=== PATIENT | female | born 1975 | race Caucasian/White ===

== ENCOUNTER 2017-01-18 16:17 | Emergency (ER) | payer SELFPAY ==
[~2017-01-18] VITALS: Ht 167.6 cm; Wt 122.5 kg
[~2017-01-18 16:17] MED LIST: AMLODIPINE BES1 CAP PO; AMLODIPINE BESY1 CA3 PO; ATENOLOL25 MG PO; CIPRO500 MG PO; CLARITIN10 MG PO; DOXYCYCLINE100 M3 PO; ESTRADIOL1 MG PO; FLONASE ALLERG9.9 ML NAS; FUROSEMIDE40 MG PO; HYDROCODONE BIT1 T11 PO; LANSOPRAZOLE30 MG PO; LOMOTIL 0.025 M1 TA1 PO; MOTRIN800 MG PO; NAPROSYN500 MG PO; NORCO 325 MG-51 TAB PO; PARAFON FORTE500 MG PO; PAROXETINE HCL20 MG PO; PROCTOFOAM 1%10 GM PO; SYNTHROID25 MCG PO; Synthroid,Levo25 MCG PO; VIBRAMYCIN100 MG PO; VITAMIN D32000 IU PO; ZOFRAN ODT4 MG SL; ZOVIRAX400 MG PO
[2017-01-18 16:29] VITALS: BP 129/76
[2017-01-18] MEDS ORDERED: MEDROL DOSEPAK4 MG PO (19:42)
[2017-01-18] MEDS ORDERED: BENADRYL ALLERG25 M5 PO (19:42)
[2017-01-18] MEDS ORDERED: CYCLOBENZAPRINE5 M3 PO (19:42)
== END 2017-01-18 19:49 | disposition home or self-care (01) ==
LOC: ED 16:17
DX: K13.0 Diseases of lips (principal); T78.40XA Allergy, unspecified, initial encounter; M62.838 Other muscle spasm; Z98.890 Other specified postprocedural states; Z90.710 Acquired absence of both cervix and uterus; Z79.899 Other long term (current) drug therapy; Z88.2 Allergy status to sulfonamides; Z88.1 Allergy status to other antibiotic agents; Y92.9 Unspecified place or not applicable

== ENCOUNTER 2017-07-01 20:24 | Emergency (ER) | payer BC ==
[~2017-07-01] VITALS: Ht 167.6 cm; Wt 119.3 kg
[~2017-07-01 20:24] MED LIST changes: +BENADRYL ALLERG25 M5 PO; +CYCLOBENZAPRINE5 M3 PO; +MEDROL DOSEPAK4 MG PO
[2017-07-01 20:42] VITALS: BP 137/67
[2017-07-01 21:05] LABS: BILIRUBIN NEGATIVE (NEGATIVE); BLOOD 1+ (NEGATIVE); CLARITY SL CLOUDY (CLEAR); COLOR YELLOW (YELLOW); GLUCOSE NEGATIVE (NEGATIVE); KETONE NEGATIVE (NEGATIVE); LEUKO ESTERASE NEGATIVE (NEGATIVE); NITRITE NEGATIVE (NEGATIVE); PH 5.5 (5.0-9.0); SPECIFIC GRAVITY 1.025 (1.005-1.030); UROBILINOGEN 0.2 E.U./dl (0.2-1.0)
[2017-07-01 21:22] LABS: BACTERIA 4+; YEAST TRACE
[2017-07-01 21:23] LABS: BASO % 0.2 % (0.0-1.0); EOS # 0.1 10*3/uL (0.0-0.4); EOS % 2.9 % (1.0-4.0); HEMOGLOBIN 12.7 g/dl (12.0-16.0); LYMPH # 1.6 10*3/uL (1.3-4.4); LYMPH % 33.3 % (27.0-41.0); MEAN CELL VOLUME 81.9 fl (81.0-99.0); MEAN CORPUSCULAR HGB 26.7 pg (27.0-31.0); MEAN CORPUSCULAR HGB CONC 32.6 g/dl (33.0-37.0); MEAN PLATELET VOLUME 9.2 fl (9.6-12.3); MONO # 0.4 10*3/uL (0.1-1.0); MONO % 8.9 % (3.0-9.0); NEUT # 2.6 10*3/uL (2.3-7.9); NEUT % 54.5 % (47.0-73.0); PLATELET COUNT AUTOMATED 198 10*3/uL (130-400); RED BLOOD COUNT 4.76 10*6/uL (4.10-5.10); RED CELL DISTRI WIDTH 13.9 % (0-14.5); WHITE BLOOD COUNT 4.8 10*3/uL (4.8-10.8)
[2017-07-01 21:38] LABS: ALBUMIN 3.4 gm/dl (3.1-4.5); ALKALINE PHOSPHATASE 94 U/L (45-117); BUN 17 mg/dl (7-24); CHLORIDE 108 mmol/L (98-107); CREATININE 0.91 mg/dL (0.55-1.02); LIPASE 218 U/L (73-393); POTASSIUM 3.9 mmol/L (3.5-5.1); SGOT/AST 23 IU/L (3-35); SGPT/ALT 42 U/L (12-78); SODIUM 141 mmol/L (136-145); TOTAL PROTEIN 6.8 gm/dL (6.4-8.2)
[2017-07-01] MEDS ORDERED: Zofran4 MG PO (23:42)
[2017-07-01] MEDS ORDERED: Motrin,Rufen800 MG PO (23:42)
== END 2017-07-02 00:06 | disposition home or self-care (01) ==
LOC: ED 20:24
PROVIDERS: Physician Assistant
DX: R10.31 Right lower quadrant pain (principal); Z98.890 Other specified postprocedural states; Z90.710 Acquired absence of both cervix and uterus; Z79.899 Other long term (current) drug therapy; Z88.1 Allergy status to other antibiotic agents; Z88.2 Allergy status to sulfonamides

== ENCOUNTER 2017-10-13 14:40 | Emergency (ER) | payer BC ==
[~2017-10-13] VITALS: Ht 167.6 cm; Wt 119.3 kg
[~2017-10-13 14:40] MED LIST changes: +Motrin,Rufen800 MG PO; +Zofran4 MG PO
[2017-10-13 14:55] VITALS: BP 123/85
[2017-10-13] MEDS ORDERED: CITALOPRAM10 MG PO (14:56)
[2017-10-13] MEDS ORDERED: ATORVASTATIN CA10 M1 PO (14:57)
[2017-10-13] MEDS ORDERED: FLONASE ALLERG9.9 ML NAS (15:09)
[2017-10-13] MEDS ORDERED: VIBRAMYCIN100 MG PO (15:09)
== END 2017-10-13 15:15 | disposition home or self-care (01) ==
LOC: ED 14:40
DX: J01.90 Acute sinusitis, unspecified (principal); Z98.890 Other specified postprocedural states; Z90.710 Acquired absence of both cervix and uterus; Z79.899 Other long term (current) drug therapy; Z88.2 Allergy status to sulfonamides; Z88.1 Allergy status to other antibiotic agents

== ENCOUNTER 2017-12-20 17:48 | Emergency (ER) | payer BC ==
[~2017-12-20] VITALS: Ht 167.6 cm; Wt 122.5 kg
[~2017-12-20 17:48] MED LIST changes: +ATORVASTATIN CA10 M1 PO; +CITALOPRAM10 MG PO
[2017-12-20 17:57] VITALS: BP 115/72
[2017-12-20] MEDS ORDERED: DOXYCYCLINE100 M3 PO (18:42)
[2017-12-20] MEDS ORDERED: IBUPROFEN600 MG PO ×2 (18:42→18:43)
== END 2017-12-20 19:07 | disposition home or self-care (01) ==
LOC: ED 17:48
DX: K13.0 Diseases of lips (principal); Z88.1 Allergy status to other antibiotic agents; Z88.2 Allergy status to sulfonamides

== ENCOUNTER 2018-12-05 16:01 | Emergency (ER) | payer BC ==
[~2018-12-05] VITALS: Ht 167.6 cm; Wt 127.0 kg
[~2018-12-05 16:01] MED LIST changes: +IBUPROFEN600 MG PO; +ZITHROMAX250 MG PO
[2018-12-05 16:04] VITALS: BP 131/79
[2018-12-05] MEDS ORDERED: AMINOPHYLLIN200 MG PO (17:01)
== END 2018-12-05 17:05 | disposition home or self-care (01) ==
LOC: ED 16:01
DX: H66.91 Otitis media, unspecified, right ear (principal); Z88.2 Allergy status to sulfonamides; Z88.1 Allergy status to other antibiotic agents; Z79.2 Long term (current) use of antibiotics; Z79.899 Other long term (current) drug therapy; Z90.710 Acquired absence of both cervix and uterus

== ENCOUNTER 2018-12-23 13:18 | Emergency (ER) | payer BC ==
[~2018-12-23] VITALS: Ht 167.6 cm; Wt 127.0 kg
[~2018-12-23 13:18] MED LIST changes: +AMINOPHYLLIN200 MG PO
[2018-12-23 13:19] VITALS: BP 143/95
[2018-12-23] MEDS ORDERED: ZITHROMAX250 MG PO (14:23)
== END 2018-12-23 14:33 | disposition home or self-care (01) ==
LOC: ED 13:18
DX: H66.91 Otitis media, unspecified, right ear (principal); J32.9 Chronic sinusitis, unspecified; Z88.2 Allergy status to sulfonamides; Z88.1 Allergy status to other antibiotic agents; Z79.899 Other long term (current) drug therapy

== ENCOUNTER 2019-03-01 15:08 | Emergency (ER) | payer BC ==
[~2019-03-01] VITALS: Ht 167.6 cm; Wt 127.0 kg
[2019-03-01 15:13] VITALS: BP 122/72
[2019-03-01] MEDS ORDERED: CYCLOBENZAPRINE10 MG PO ×2 (18:16→18:17)
== END 2019-03-01 18:26 | disposition home or self-care (01) ==
LOC: ED 15:08
DX: S46.912A Strain of unspecified muscle, fascia and tendon at shoulder and upper arm level, left arm, initial encounter (principal); R07.81 Pleurodynia; M79.602 Pain in left arm; Z88.2 Allergy status to sulfonamides; Z88.1 Allergy status to other antibiotic agents; Z79.899 Other long term (current) drug therapy; W18.39XA Other fall on same level, initial encounter; Y93.02 Activity, running; Y92.89 Other specified places as the place of occurrence of the external cause; Y99.8 Other external cause status

== ENCOUNTER 2019-06-27 10:49 | Emergency (ER) | payer BC ==
[~2019-06-27] VITALS: Ht 167.6 cm; Wt 128.4 kg
--- NOTE | ~2019-06-27 | EKG ---
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
[~2019-06-27 10:49] MED LIST changes: +CYCLOBENZAPRINE10 MG PO
[2019-06-27 10:50] VITALS: BP 144/91
[2019-06-27 11:59] LABS: BASO % 0.5 % (0.0-1.0); EOS # 0.1 10*3/uL (0.0-0.4); EOS % 1.8 % (1.0-4.0); HEMATOCRIT 42.7 % (37.0-47.0); HEMOGLOBIN 13.5 g/dl (12.0-16.0); LYMPH # 1.1 10*3/uL (1.3-4.4); LYMPH % 25.9 % (27.0-41.0); MEAN CELL VOLUME 82.6 fl (81.0-99.0); MEAN CORPUSCULAR HGB 26.1 pg (27.0-31.0); MEAN CORPUSCULAR HGB CONC 31.6 g/dl (33.0-37.0); MEAN PLATELET VOLUME 9.1 fl (9.6-12.3); MONO # 0.3 10*3/uL (0.1-1.0); MONO % 7.6 % (3.0-9.0); NEUT # 2.8 10*3/uL (2.3-7.9); NEUT % 63.7 % (47.0-73.0); PLATELET COUNT AUTOMATED 217 10*3/uL (130-400); RED BLOOD COUNT 5.17 10*6/uL (4.10-5.10); RED CELL DISTRI WIDTH 14.5 % (0-14.5); WHITE BLOOD COUNT 4.4 10*3/uL (4.8-10.8)
[2019-06-27 12:12] LABS: ACT PARTIAL THROMBO TIME 26.5 SECONDS (20.0-32.1); INTERNATIONAL NORM RATIO 0.9 (2.0-3.5)
[2019-06-27 12:14] LABS: BILIRUBIN NEGATIVE (NEGATIVE); BLOOD 1+ (NEGATIVE); CLARITY CLOUDY (CLEAR); COLOR YELLOW (YELLOW); GLUCOSE NEGATIVE (NEGATIVE); KETONE NEGATIVE (NEGATIVE); LEUKO ESTERASE NEGATIVE (NEGATIVE); NITRITE NEGATIVE (NEGATIVE); PH 5.5 (5.0-9.0); SPECIFIC GRAVITY >= 1.030 (1.005-1.030); UROBILINOGEN 0.2 E.U./dl (0.2-1.0)
[2019-06-27 12:20] LABS: ALBUMIN 3.7 gm/dl (3.1-4.5); ALKALINE PHOSPHATASE 98 U/L (45-117); BUN 13 mg/dl (7-24); CHLORIDE 108 mmol/L (98-107); CREATININE 0.79 mg/dL (0.55-1.02); LIPASE 85 U/L (73-393); POTASSIUM 3.9 mmol/L (3.5-5.1); SGOT/AST 17 IU/L (3-35); SGPT/ALT 30 U/L (12-78); SODIUM 141 mmol/L (136-145); TOTAL PROTEIN 7.3 gm/dL (6.4-8.2)
[2019-06-27 12:22] LABS: TROPONIN I < 0.015 ng/ml (<0.045)
[2019-06-27 12:35] LABS: BACTERIA 3+; MUCOUS 2+
[2019-06-27] MEDS ORDERED: TESSALON PERLE100 M1 PO (14:47)
[2019-06-27] MEDS ORDERED: PREDNISONE20 M1 PO (14:47)
[2019-06-27] MEDS ORDERED: PROVENTIL HFA6.7 GM INH (14:47)
== END 2019-06-27 15:22 | disposition home or self-care (01) ==
LOC: ED 10:49
PROVIDERS: Physician Assistant
DX: J40 Bronchitis, not specified as acute or chronic (principal); R19.7 Diarrhea, unspecified; R09.1 Pleurisy; M54.9 Dorsalgia, unspecified; Z79.899 Other long term (current) drug therapy; Z88.1 Allergy status to other antibiotic agents; Z88.2 Allergy status to sulfonamides

== ENCOUNTER 2019-09-19 16:21 | Emergency (ER) | payer BC ==
[~2019-09-19] VITALS: Ht 167.6 cm; Wt 127.0 kg
[~2019-09-19 16:21] MED LIST changes: +PREDNISONE20 M1 PO; +PROVENTIL HFA6.7 GM INH; +TESSALON PERLE100 M1 PO
[2019-09-19 16:23] VITALS: BP 130/74
[2019-09-19] MEDS ORDERED: TESSALON PERLE100 MG PO (17:13)
[2019-09-19] MEDS ORDERED: CLARITIN10 MG PO (17:13)
== END 2019-09-19 17:21 | disposition home or self-care (01) ==
LOC: ED 16:21
DX: B34.9 Viral infection, unspecified (principal); H92.01 Otalgia, right ear; I10 Essential (primary) hypertension; E78.5 Hyperlipidemia, unspecified; K21.9 Gastro-esophageal reflux disease without esophagitis; E07.9 Disorder of thyroid, unspecified; Z88.2 Allergy status to sulfonamides; Z88.1 Allergy status to other antibiotic agents; Z79.899 Other long term (current) drug therapy

== ENCOUNTER → 2020-03-31 | Outpatient (CLI) | payer BC ==
[~2020-03-31] MED LIST changes: +TESSALON PERLE100 MG PO
== END | disposition home or self-care (01) ==
LOC: RAD 16:21
DX: M54.2 Cervicalgia (principal); M54.41 Lumbago with sciatica, right side

== ENCOUNTER → 2020-04-25 | Outpatient (CLI) | payer BC | END | disposition home or self-care (01) | LOC: CT 12:45 | DX: G44.52 New daily persistent headache (NDPH) (principal) ==

== ENCOUNTER 2020-07-02 16:38 | Emergency (ER) | payer BC ==
[~2020-07-02] VITALS: Ht 167.6 cm; Wt 124.7 kg
[2020-07-02 16:59] VITALS: BP 138/94
[2020-07-02] MEDS ORDERED: DOXYCYCLINE100 M3 PO (17:46)
== END 2020-07-02 17:48 | disposition home or self-care (01) ==
LOC: ED 16:38
DX: N61.1 Abscess of the breast and nipple (principal); Z79.899 Other long term (current) drug therapy; Z88.2 Allergy status to sulfonamides; Z79.2 Long term (current) use of antibiotics

== ENCOUNTER 2020-09-21 15:21 | Emergency (ER) | payer BC, OTHER ==
[~2020-09-21] VITALS: Ht 167.6 cm; Wt 129.3 kg
[2020-09-21 15:28] VITALS: BP 139/71
[2020-09-21 16:07] LABS: BASO % 0.2 % (0.0-1.0); EOS # 0.1 10*3/uL (0.0-0.4); EOS % 1.8 % (1.0-4.0); HEMATOCRIT 42.7 % (37.0-47.0); LYMPH # 1.3 10*3/uL (1.3-4.4); LYMPH % 29.4 % (27.0-41.0); MEAN CORPUSCULAR HGB 25.5 pg (27.0-31.0); MEAN CORPUSCULAR HGB CONC 31.9 g/dl (33.0-37.0); MEAN PLATELET VOLUME 8.8 fl (9.6-12.3); MONO # 0.3 10*3/uL (0.1-1.0); MONO % 6.2 % (3.0-9.0); NEUT # 2.7 10*3/uL (2.3-7.9); NEUT % 62.2 % (47.0-73.0); PLATELET COUNT AUTOMATED 222 10*3/uL (130-400); RED BLOOD COUNT 5.34 10*6/uL (4.10-5.10); RED CELL DISTRI WIDTH 14.1 % (0-14.5); WHITE BLOOD COUNT 4.4 10*3/uL (4.8-10.8)
[2020-09-21 16:23] LABS: ALBUMIN 3.7 gm/dl (3.1-4.5); ALKALINE PHOSPHATASE 99 U/L (45-117); BUN 13 mg/dl (7-24); CHLORIDE 106 mmol/L (98-107); CREATININE 0.73 mg/dL (0.55-1.02); POTASSIUM 3.8 mmol/L (3.5-5.1); SGOT/AST 21 IU/L (3-35); SGPT/ALT 35 U/L (12-78); SODIUM 140 mmol/L (136-145); TOTAL PROTEIN 7.4 gm/dL (6.4-8.2)
[2020-09-21] MEDS ORDERED: VIBRAMYCIN100 MG PO (17:12)
== END 2020-09-21 17:23 | disposition home or self-care (01) ==
LOC: ED 15:21
PROVIDERS: Physician Assistant
DX: J32.9 Chronic sinusitis, unspecified (principal); I10 Essential (primary) hypertension; Z88.1 Allergy status to other antibiotic agents; Z88.2 Allergy status to sulfonamides; Z79.899 Other long term (current) drug therapy

== ENCOUNTER → 2020-10-27 | Outpatient (CLI) | payer OTHER | END | disposition home or self-care (01) | LOC: US 13:12 | PROVIDERS: ATTEND Nurse Practitioner Family | DX: R59.9 Enlarged lymph nodes, unspecified (principal) ==

== ENCOUNTER 2021-04-29 23:13 | Emergency (ER) | payer OTHER ==
[~2021-04-29] VITALS: Ht 167.6 cm; Wt 128.4 kg
[2021-04-29 23:36] LABS: BASO % 0.3 % (0.0-1.0); EOS # 0.1 10*3/uL (0.0-0.4); EOS % 1.3 % (1.0-4.0); HEMATOCRIT 41.1 % (37.0-47.0); LYMPH # 1.8 10*3/uL (1.3-4.4); LYMPH % 29.9 % (27.0-41.0); MEAN CELL VOLUME 80.4 fl (81.0-99.0); MEAN CORPUSCULAR HGB 25.4 pg (27.0-31.0); MEAN CORPUSCULAR HGB CONC 31.6 g/dl (33.0-37.0); MEAN PLATELET VOLUME 9.5 fl (9.6-12.3); MONO # 0.5 10*3/uL (0.1-1.0); MONO % 8.2 % (3.0-9.0); NEUT # 3.7 10*3/uL (2.3-7.9); NEUT % 60.1 % (47.0-73.0); PLATELET COUNT AUTOMATED 217 10*3/uL (130-400); RED BLOOD COUNT 5.11 10*6/uL (4.10-5.10); RED CELL DISTRI WIDTH 14.5 % (0-14.5); WHITE BLOOD COUNT 6.1 10*3/uL (4.8-10.8)
[2021-04-29 23:52] LABS: ALBUMIN 3.7 gm/dl (3.1-4.5); ALKALINE PHOSPHATASE 90 U/L (45-117); BUN 14 mg/dl (7-24); CHLORIDE 108 mmol/L (98-107); CREATININE 0.87 mg/dL (0.55-1.02); SGOT/AST 21 IU/L (3-35); SGPT/ALT 30 U/L (12-78); SODIUM 139 mmol/L (136-145); TOTAL PROTEIN 7.4 gm/dL (6.4-8.2)
[2021-04-29 23:55] LABS: TROPONIN I < 0.015 ng/ml (<0.045)
[2021-04-30 05:16] VITALS: BP 132/72
[2021-04-30] MEDS ORDERED: TOPAMAX25 M3 PO ×2 (05:52)
== END 2021-04-30 06:14 | disposition home or self-care (01) ==
LOC: ED 23:13
PROVIDERS: Emergency Medicine
DX: R07.89 Other chest pain (principal); G43.909 Migraine, unspecified, not intractable, without status migrainosus; R55 Syncope and collapse; Z98.890 Other specified postprocedural states; Z90.710 Acquired absence of both cervix and uterus; Z79.899 Other long term (current) drug therapy; Z88.2 Allergy status to sulfonamides; Z88.1 Allergy status to other antibiotic agents

== ENCOUNTER 2021-05-25 14:03 | Emergency (ER) | payer OTHER ==
[~2021-05-25] VITALS: Ht 167.6 cm; Wt 126.1 kg
[~2021-05-25 14:03] MED LIST changes: +TOPAMAX25 M3 PO
[2021-05-25 14:50] VITALS: BP 143/99
[2021-05-25] MEDS ORDERED: ZOLOFT100 MG PO (15:07)
[2021-05-25] MEDS ORDERED: DOXYCYCLINE100 M3 PO (15:17)
== END 2021-05-25 15:23 | disposition home or self-care (01) ==
LOC: ED 14:03
DX: L73.9 Follicular disorder, unspecified (principal); L02.213 Cutaneous abscess of chest wall; N61.1 Abscess of the breast and nipple; Z88.1 Allergy status to other antibiotic agents; Z88.2 Allergy status to sulfonamides; Z79.899 Other long term (current) drug therapy

== ENCOUNTER → 2022-06-15 | Outpatient (CLI) | payer OTHER ==
[~2022-06-15] MED LIST changes: +ZOLOFT100 MG PO
[2022-06-15 15:49] LABS: BASO % 0.2 % (0.0-1.0); EOS # 0.1 10*3/uL (0.0-0.4); EOS % 1.4 % (1.0-4.0); HEMATOCRIT 42.9 % (37.0-47.0); LYMPH # 1.2 10*3/uL (1.3-4.4); LYMPH % 27.4 % (27.0-41.0); MEAN CELL VOLUME 82.2 fl (81.0-99.0); MEAN CORPUSCULAR HGB 26.8 pg (27.0-31.0); MEAN CORPUSCULAR HGB CONC 32.6 g/dl (33.0-37.0); MEAN PLATELET VOLUME 9.1 fl (9.6-12.3); MONO # 0.2 10*3/uL (0.1-1.0); MONO % 5.2 % (3.0-9.0); NEUT # 2.8 10*3/uL (2.3-7.9); NEUT % 65.3 % (47.0-73.0); PLATELET COUNT AUTOMATED 178 10*3/uL (130-400); RED BLOOD COUNT 5.22 10*6/uL (4.10-5.10); RED CELL DISTRI WIDTH 14.2 % (0-14.5); WHITE BLOOD COUNT 4.2 10*3/uL (4.8-10.8)
[2022-06-15 16:06] LABS: ALKALINE PHOSPHATASE 67 U/L (45-117); BUN 20 mg/dl (7-24); CHLORIDE 111 mmol/L (98-107); CHOLESTEROL 151 mg/dL (<200); CREATININE 1.12 mg/dL (0.55-1.02); LDL CHOLESTEROL 90 mg/dL (9-159); POTASSIUM 4.1 mmol/L (3.5-5.1); SGOT/AST 14 IU/L (3-35); SGPT/ALT 23 U/L (12-78); SODIUM 142 mmol/L (136-145); TOTAL PROTEIN 7.3 gm/dL (6.4-8.2); TRIGLYCERIDES 122 mg/dl (<150)
== END | disposition home or self-care (01) ==
LOC: LAB 15:32
PROVIDERS: ATTEND Nurse Practitioner Family
DX: I10 Essential (primary) hypertension (principal); E78.5 Hyperlipidemia, unspecified; E03.9 Hypothyroidism, unspecified; E55.9 Vitamin D deficiency, unspecified; D72.819 Decreased white blood cell count, unspecified; R94.4 Abnormal results of kidney function studies

== ENCOUNTER → 2022-08-06 | Outpatient (CLI) | payer OTHER ==
[2022-08-06 15:55] LABS: ALKALINE PHOSPHATASE 72 U/L (45-117); BUN 17 mg/dl (7-24); CHLORIDE 112 mmol/L (98-107); CHOLESTEROL 135 mg/dL (<200); CREATININE 1.03 mg/dL (0.55-1.02); LDL CHOLESTEROL 71 mg/dL (9-159); POTASSIUM 3.8 mmol/L (3.5-5.1); SGOT/AST 18 IU/L (3-35); SGPT/ALT 25 U/L (12-78); SODIUM 144 mmol/L (136-145); TOTAL PROTEIN 7.5 gm/dL (6.4-8.2); TRIGLYCERIDES 129 mg/dl (<150)
== END | disposition home or self-care (01) ==
LOC: LAB 15:13
PROVIDERS: ATTEND Nurse Practitioner Family
DX: I10 Essential (primary) hypertension (principal); E78.5 Hyperlipidemia, unspecified; E03.9 Hypothyroidism, unspecified; E55.9 Vitamin D deficiency, unspecified

== ENCOUNTER → 2022-11-17 | Outpatient (CLI) | payer OTHER ==
[~2022-11-17] MED LIST changes: +PEPCID20 MG PO; +PREDNISONE50 MG PO
[2022-11-17 15:50] LABS: ALKALINE PHOSPHATASE 69 U/L (46-116); BUN 13 mg/dl (9-23); CHLORIDE 104 mmol/L (98-107); CHOLESTEROL 144 mg/dL (<200); LDL CHOLESTEROL 86 mg/dL (9-159); POTASSIUM 3.8 mmol/L (3.4-5.1); SGPT/ALT 24 U/L (10-49); THYROID STIM HORMONE (HS) 1.622 uIU/ml (0.550-4.780); TOTAL PROTEIN 7.2 gm/dL (6.0-8.0); TRIGLYCERIDES 107 mg/dl (<150)
== END | disposition home or self-care (01) ==
LOC: LAB 15:07
PROVIDERS: ATTEND Nurse Practitioner Family
DX: E78.5 Hyperlipidemia, unspecified (principal); I10 Essential (primary) hypertension; E55.9 Vitamin D deficiency, unspecified; E03.9 Hypothyroidism, unspecified

== ENCOUNTER 2022-11-19 13:11 | Emergency (ER) | payer OTHER ==
[~2022-11-19] VITALS: Ht 167.6 cm; Wt 120.7 kg
[~2022-11-19 13:11] MED LIST changes: -PEPCID20 MG PO; -PREDNISONE50 MG PO
[2022-11-19 13:16] VITALS: BP 140/95
[2022-11-19 14:59] LABS: BASO % 0.5 % (0.0-1.0); HEMATOCRIT 42.5 % (37.0-47.0); LYMPH # 1.1 10*3/uL (1.3-4.4); LYMPH % 27.2 % (27.0-41.0); MEAN CORPUSCULAR HGB CONC 32.9 g/dl (33.0-37.0); MONO # 0.2 10*3/uL (0.1-1.0); MONO % 5.9 % (3.0-9.0); NEUT # 2.6 10*3/uL (2.3-7.9); NEUT % 64.9 % (47.0-73.0); PLATELET COUNT AUTOMATED 202 10*3/uL (130-400); RED BLOOD COUNT 5.18 10*6/uL (4.10-5.10); RED CELL DISTRI WIDTH 14.1 % (0-14.5)
[2022-11-19 15:17] LABS: ALKALINE PHOSPHATASE 69 U/L (46-116); BUN 18 mg/dl (9-23); CHLORIDE 103 mmol/L (98-107); LIPASE 28 U/L (12-53); POTASSIUM 3.6 mmol/L (3.4-5.1); SGPT/ALT 26 U/L (10-49); TOTAL PROTEIN 7.2 gm/dL (6.0-8.0)
[2022-11-19 15:18] LABS: ACT PARTIAL THROMBO TIME 27.7 SECONDS (20.0-32.1)
[2022-11-19] MEDS ORDERED: PREDNISONE50 MG PO (16:17)
[2022-11-19] MEDS ORDERED: PEPCID20 MG PO (16:17)
== END 2022-11-19 16:22 | disposition home or self-care (01) ==
LOC: ED 13:11
PROVIDERS: Emergency Medicine
DX: T78.3XXA Angioneurotic edema, initial encounter (principal); Z88.2 Allergy status to sulfonamides; Z88.1 Allergy status to other antibiotic agents; Z88.8 Allergy status to other drugs, medicaments and biological substances; Z98.890 Other specified postprocedural states; Z90.710 Acquired absence of both cervix and uterus

== ENCOUNTER 2023-04-15 22:10 | Emergency (ER) | payer OTHER ==
[~2023-04-15] VITALS: Ht 167.6 cm; Wt 122.5 kg
[~2023-04-15 22:10] MED LIST changes: +DOXYCYCLINE HY100 M3 PO; +PEPCID20 MG PO; +PREDNISONE50 MG PO
[2023-04-15 22:15] VITALS: BP 154/80
[2023-04-15] MEDS ORDERED: LOTREL 10-40 M1 EACH PO (22:25)
[2023-04-15] MEDS ORDERED: BUSPAR15 MG PO (22:25)
[2023-04-15] MEDS ORDERED: PRISTIQ50 MG PO (22:25)
[2023-04-15] MEDS ORDERED: OMEPRAZOLE MAGN20 MG PO (22:26)
[2023-04-15] MEDS ORDERED: HYDROXYZINE PAM25 M1 PO (22:26)
[2023-04-15] MEDS ORDERED: CETIRIZINE HYDR10 MG PO (22:28)
[2023-04-15] MEDS ORDERED: 24 HOUR ALLER15.8 ML NAS (22:28)
[2023-04-15] MEDS ORDERED: LEVOTHYROXINE75 MCG PO (22:28)
[2023-04-16] MEDS ORDERED: NAPROSYN500 MG PO (00:33)
== END 2023-04-16 00:52 | disposition home or self-care (01) ==
LOC: ED 22:10
DX: S80.01XA Contusion of right knee, initial encounter (principal); M54.2 Cervicalgia; F32.A Depression, unspecified; J44.9 Chronic obstructive pulmonary disease, unspecified; I10 Essential (primary) hypertension; Z88.2 Allergy status to sulfonamides; Z88.1 Allergy status to other antibiotic agents; Z88.8 Allergy status to other drugs, medicaments and biological substances; Z98.890 Other specified postprocedural states; Z90.710 Acquired absence of both cervix and uterus; W01.0XXA Fall on same level from slipping, tripping and stumbling without subsequent striking against object, initial encounter; Y93.89 Activity, other specified; Y92.89 Other specified places as the place of occurrence of the external cause; Y99.8 Other external cause status

== ENCOUNTER 2023-06-25 19:32 | Emergency (ER) | payer OTHER ==
[~2023-06-25] VITALS: Ht 167.6 cm; Wt 128.4 kg
[~2023-06-25 19:32] MED LIST changes: +24 HOUR ALLER15.8 ML NAS; +BUSPAR15 MG PO; +CETIRIZINE HYDR10 MG PO; +HYDROXYZINE PAM25 M1 PO; +LEVOTHYROXINE75 MCG PO; +LOTREL 10-40 M1 EACH PO; +OMEPRAZOLE MAGN20 MG PO; +PRISTIQ50 MG PO
[2023-06-25 19:45] VITALS: BP 132/81
[2023-06-25] MEDS ORDERED: PREDNISONE20 M1 PO (21:34)
[2023-06-25] MEDS ORDERED: ZITHROMAX250 MG PO (21:42)
== END 2023-06-25 21:45 | disposition home or self-care (01) ==
LOC: ED 19:32
DX: J06.9 Acute upper respiratory infection, unspecified (principal); Z20.822 Contact with and (suspected) exposure to COVID-19; R00.0 Tachycardia, unspecified; E66.9 Obesity, unspecified; Z88.2 Allergy status to sulfonamides; Z88.1 Allergy status to other antibiotic agents; Z79.899 Other long term (current) drug therapy; Z98.890 Other specified postprocedural states; Z90.711 Acquired absence of uterus with remaining cervical stump; Z68.30 Body mass index [BMI] 30.0-30.9, adult

== ENCOUNTER → 2024-07-19 | Outpatient (CLI) | payer SELFPAY | END | disposition home or self-care (01) | LOC: RESCLI 16:23 | PROVIDERS: ATTEND Internal Medicine | DX: I10 Essential (primary) hypertension (principal); E78.5 Hyperlipidemia, unspecified; E03.9 Hypothyroidism, unspecified; E55.9 Vitamin D deficiency, unspecified; F41.9 Anxiety disorder, unspecified; F32.9 Major depressive disorder, single episode, unspecified; K21.9 Gastro-esophageal reflux disease without esophagitis; B07.9 Viral wart, unspecified; Z98.890 Other specified postprocedural states; Z90.710 Acquired absence of both cervix and uterus; Z88.8 Allergy status to other drugs, medicaments and biological substances; Z79.899 Other long term (current) drug therapy ==

== ENCOUNTER → 2024-10-04 | Outpatient (CLI) | payer SELFPAY | END | disposition home or self-care (01) | LOC: RESCLI 14:01 | PROVIDERS: ATTEND Family Medicine | DX: I10 Essential (primary) hypertension (principal); E78.5 Hyperlipidemia, unspecified; F32.9 Major depressive disorder, single episode, unspecified; E03.9 Hypothyroidism, unspecified; Z98.890 Other specified postprocedural states; Z79.899 Other long term (current) drug therapy; Z88.1 Allergy status to other antibiotic agents; Z88.8 Allergy status to other drugs, medicaments and biological substances ==

== ENCOUNTER 2024-12-02 17:27 | Emergency (ER) | payer SELFPAY ==
[~2024-12-02] VITALS: Ht 167.6 cm; Wt 108.9 kg
[2024-12-02 17:40] VITALS: BP 144/85
[2024-12-02] MEDS ORDERED: Phenylephrine HydrochloridE 0.5% NASAL 15 ML BOTTLE NAS ONE (17:45)
== END 2024-12-02 18:46 | disposition home or self-care (01) ==
LOC: ED 17:27
DX: R04.0 Epistaxis (principal); R09.81 Nasal congestion; R51.9 Headache, unspecified; F32.A Depression, unspecified; J44.9 Chronic obstructive pulmonary disease, unspecified; I10 Essential (primary) hypertension; Z88.2 Allergy status to sulfonamides; Z88.1 Allergy status to other antibiotic agents; Z88.8 Allergy status to other drugs, medicaments and biological substances; Z98.890 Other specified postprocedural states; Z90.49 Acquired absence of other specified parts of digestive tract; Z90.710 Acquired absence of both cervix and uterus

== ENCOUNTER → 2024-12-14 | Outpatient (CLI) | payer SELFPAY ==
[2024-12-14 17:46] LABS: BASO % 0.5 % (0.0-1.0); EOS # 0.1 10*3/uL (0.0-0.4); EOS % 1.4 % (1.0-4.0); MEAN CORPUSCULAR HGB 27.8 pg (27.0-31.0); MEAN CORPUSCULAR HGB CONC 32.3 g/dl (33.0-37.0); MEAN PLATELET VOLUME 9.6 fl (9.6-12.3); MONO # 0.3 10*3/uL (0.1-1.0); MONO % 6.2 % (3.0-9.0); PLATELET COUNT AUTOMATED 202 10*3/uL (130-400); RED CELL DISTRI WIDTH 14.2 % (0-14.5); WHITE BLOOD COUNT 4.2 10*3/uL (4.8-10.8)
[2024-12-14 17:59] LABS: ALKALINE PHOSPHATASE 73 U/L (46-116); BUN 14 mg/dl (9-23); CHLORIDE 106 mmol/L (98-107); CHOLESTEROL 141 mg/dL (<200); LDL CHOLESTEROL 76 mg/dL (9-159); POTASSIUM 3.6 mmol/L (3.4-5.1); SGPT/ALT 18 U/L (5-49); TOTAL PROTEIN 6.5 gm/dL (6.0-8.0); TRIGLYCERIDES 81 mg/dl (<150)
== END | disposition home or self-care (01) ==
LOC: ZRHCWE 12:37
PROVIDERS: ATTEND Nurse Practitioner Family
DX: Z13.220 Encounter for screening for lipoid disorders (principal); R53.83 Other fatigue; I10 Essential (primary) hypertension; E78.5 Hyperlipidemia, unspecified

== ENCOUNTER 2025-01-24 16:09 | Emergency (ER) | payer SELFPAY ==
[~2025-01-24] VITALS: Ht 167.6 cm; Wt 108.9 kg
[2025-01-24 16:19] VITALS: BP 120/73
[2025-01-24] MEDS ORDERED: DECADRON1 MG PO (17:25)
== END 2025-01-24 17:37 | disposition home or self-care (01) ==
LOC: ED 16:09
DX: J32.0 Chronic maxillary sinusitis (principal); Z20.822 Contact with and (suspected) exposure to COVID-19; J32.1 Chronic frontal sinusitis; H66.91 Otitis media, unspecified, right ear; Z88.2 Allergy status to sulfonamides; Z88.1 Allergy status to other antibiotic agents; Z79.899 Other long term (current) drug therapy; Z98.890 Other specified postprocedural states; Z90.710 Acquired absence of both cervix and uterus

== ENCOUNTER 2025-03-25 15:59 | Emergency (ER) | payer SELFPAY ==
[~2025-03-25] VITALS: Ht 167.6 cm; Wt 108.9 kg
[~2025-03-25 15:59] MED LIST changes: +DECADRON1 MG PO
[2025-03-25 16:04] VITALS: BP 131/75
[2025-03-25] MEDS ORDERED: Tdap Vaccine 0.5 ML SYR (Adult Vaccine) IM ONE (16:20)
[2025-03-25] MEDS ORDERED: CEPHALEXIN500 M1 PO (19:10)
[2025-03-25] MEDS ORDERED: Gelatin Sponge 1 EACH SPON T ONE (19:15)
[2025-03-25] MEDS ORDERED: CEPHALEXIN 500 MG CAP PO ONE (19:15)
== END 2025-03-25 19:45 | disposition home or self-care (01) ==
LOC: ED 15:59
DX: S80.11XA Contusion of right lower leg, initial encounter (principal); S90.32XA Contusion of left foot, initial encounter; S81.831A Puncture wound without foreign body, right lower leg, initial encounter; J44.9 Chronic obstructive pulmonary disease, unspecified; I10 Essential (primary) hypertension; Z88.2 Allergy status to sulfonamides; Z88.1 Allergy status to other antibiotic agents; Z79.899 Other long term (current) drug therapy; Z90.710 Acquired absence of both cervix and uterus; W18.09XA Striking against other object with subsequent fall, initial encounter; Y93.89 Activity, other specified; Y92.098 Other place in other non-institutional residence as the place of occurrence of the external cause; Y99.8 Other external cause status